=== PATIENT | female | born 1975 | race African-American/Black ===

== ENCOUNTER → 2016-08-24 | Outpatient (CLI) | payer OTHER ==
[~2016-08-24] MED LIST: IBUP-232 PO; LABE200T2 PO; OXYC1TAB63 PO
== END ==
LOC: HPND 08:32
PROVIDERS: ATTEND Obstetrics & Gynecology
DX: O35.1XX0 Maternal care for (suspected) chromosomal abnormality in fetus, not applicable or unspecified (principal); O09.523 Supervision of elderly multigravida, third trimester; O09.92 Supervision of high risk pregnancy, unspecified, second trimester; Z3A.33 33 weeks gestation of pregnancy
CPT/HCPCS: 76818; 76820

== ENCOUNTER 2016-08-31 10:22 | Emergency (ER) | payer OTHER ==
[2016-08-31] VITALS (9 sets, daily range): BP systolic 126–146; BP diastolic 90–98; PULSE 93–103; RESP 18–20
[~2016-08-31 10:22] MED LIST changes: -IBUP-232 PO; -OXYC1TAB63 PO
--- NOTE | 2016-08-31 11:45 | PD ---
HPI Chief Complaint History of chronic hypertension, nonreactive NST, patient presents for prolonged heart monitoring Date Seen: Aug 31, 2016 Time Seen: 11:00 Travel History International Travel<30 Days: No Contact w/Intl Traveler<30Days: No Known Affected Area: No History of Present Illness HPI 41-year-old at 34 weeks and 4 days of gestation, EDC 10/08/16, patient was brought to OB ED from [facility] for prolonged heart monitoring after undergoing biophysical profile measurements. The patient has a history of chronic hypertension and is currently undergoing testing twice weekly( BPP and KRISTINA check). Today BPP is 8 out of 10, KRISTINA is 7.7 cm, and NST is nonreactive. Patient currently denies headaches, blurry vision, visual disturbances and epigastric pain. care is with Dr. Howell. course is significant for advanced maternal age, abnormal cells free DNA for T 21 (patient declined amniocentesis), fetus with hypoplastic nasal bone, patient with sickle cell trait and chronic hypertension. Para: 0 : 1 Miscarriage: 0 : 0 History Past Medical History Narrative Medical Chronic hypertension( patient is on labetalol), sickle cell trait. Conjunctivitis. Obstetric History Obstetric History Primigravida Past Surgical History Narrative Surgical Denies Surgical History: No Previous Surgery Family History Narrative Family History Father has a history of heart disease(the father today 08/31/16), mother has a history of sickle cell trait Social History Alcohol Use: No Tobacco Use: No Substance Abuse: No Allergies-Medications (Allergen,Severity, Reaction): Coded Allergies: No Known Allergies (Verified , 06/27/16) Home Meds Reported Medications Labetalol 200 Mg [id number] Mg PO BID Ref 0 06/27/16 Review of Systems Except as stated in HPI: all other systems reviewed are Neg Cardiovascular: Other (increased blood pressure, sickle cell trait) Hematologic/Lymphatic: Other (sickle cell trait) Physical Exam Narrative GENERAL: Well-nourished, well-developed patient. SKIN: Warm and dry. HEAD: Normocephalic and atraumatic. EYES: No scleral icterus. No injection or drainage. ENT: No nasal drainage noted. Mucous membranes pink. Airway patent. NECK: Supple, trachea midline. No JVD. CARDIOVASCULAR: Regular rate and rhythm without murmurs, gallops, or rubs. RESPIRATORY: Breath sounds equal bilaterally. No accessory muscle use. BREASTS: Bilateral exam showed no masses , no retractions, no nipple discharge. ABDOMEN/GI: Abdomen soft, gravid, non-tender, bowel sounds present, no rebound, no guarding Gravid to 35 weeks size Fundal Height: 35 cm GENITOURINARY: External Genitalia: intact and normal in appearance BUS glands: Normal Cervix: Close, long, posterior Dilatation: Closed Effacement: 30% Station: -3 Presentation: Cephalic Membranes: Intact Uterine Contractions: None FHT's: Category: one Baseline: 150s Reactive: Reassuring Variability: Moderate Decels: None EXTREMITIES: No cyanosis or edema. BACK: Nontender without obvious deformity. No CVA tenderness. NEUROLOGICAL: Awake and alert. Motor and sensory grossly within normal limits. Five out of 5 muscle strength in all muscle groups. Normal speech. Data Data Vital Signs Reviewed: Yes Orders Vital Signs (Adult) .ON ADMISSION (08/31/16 11:27) ^ Labor Status (08/31/16 11:27) ^ Non Stress Test (08/31/16 11:27) ^ Hydration (08/31/16 11:27) Diet Regular Basic (08/31/16 Lunch) Urinalysis - C+S If Indicated (08/31/16 11:28) Protein Creat Ratio, Random Ur (08/31/16 11:28) Complete Blood Count With Diff (08/31/16 11:29) Comprehensive Metabolic Panel (08/31/16 11:29) Uric Acid (08/31/16 11:29) Ldh Serum (08/31/16 11:29) MDM Medical Record Reviewed: Yes Diagnosis Diagnosis: Primary Impression: 34 weeks gestation of Additional Impressions: Non-reactive NST (non-stress test) Chronic hypertension affecting Disposition: 01 DISCHARGE HOME Condition: Stable Patient Instructions: General Instructions, Preeclampsia (ED) Additional Instructions: Patient underwent BPP which is 8 out of 10 with nonreactive NST. Patient underwent prolonged monitoring, NST is now reassuring,. Patient with a history of chronic hypertension on labetalol, she is currently asymptomatic, she denies headaches, blurry vision, visual disturbances and epigastric pain. Patient is scheduled for testing twice weekly ,she has an appointment for BPP and KRISTINA on 09/03/16. Patient is instructed to return to labor and delivery if headaches, blurry vision, epigastric pain, decreased movement , cramping, contractions, leakage of fluids, or vaginal bleeding. Drink plenty of fluids. Monitor kick counts daily. Wash for signs and symptoms of preeclampsia. Keep appointments with OB diagnostics and OB Doctor as scheduled. Continue with labetalol as prescribed. Campos Cates MD Aug 31, 2016 11:45
[2016-08-31 12:50] LABS: AUTOMATED NEUTROPHIL # 5.6 TH/MM3 (1.8-7.7); BASOPHIL # 0.1 TH/MM3 (0-0.2); BASOPHIL % 0.9 % (0.0-2.0); EOSINOPHIL # 0.2 TH/MM3 (0-0.4); EOSINOPHIL % 2.5 % (0.0-4.0); HEMATOCRIT 34.2 % (35.0-46.0); HEMO FLAGS DIFF FINAL; LYMPH % 17.7 % (9.0-44.0); LYMPHOCYTE # 1.4 TH/MM3 (1.0-4.8); MEAN CELL VOLUME 75.4 FL (80.0-100.0); MEAN CORPUSCULAR HEMOGLOBIN 25.3 PG (27.0-34.0); MEAN CORPUSCULAR HGB CONC 33.5 % (32.0-36.0); MONO % 7.3 % (0.0-8.0); NEUT % 71.6 % (16.0-70.0); PLATELET COUNT 234 TH/MM3 (150-450); RED BLOOD COUNT 4.53 MIL/MM3 (4.00-5.30); RED CELL DISTRIBUTION WIDTH 16.1 % (11.6-17.2); WHITE BLOOD COUNT 7.8 TH/MM3 (4.0-11.0)
[2016-08-31 12:52] LABS: BACTERIA, URINE FEW /hpf; BLOOD, URINE NEG (NEG); GLUCOSE,URINE NEG (NEG); HYALINE CAST, URINE 1 /lpf (RARE); KETONE, URINE NEG (NEG); NITRITE,URINE NEG (NEG); SQUAMOUS EPITHELIAL CELL URINE 9 /hpf (0-5); URINE COLOR LIGHT-YELLOW (YELLW/STRAW)
[2016-08-31 12:53] LABS: COMMENT (UR) CULT NOT INDICATED; CULTURE IF INDICATED CULT NOT INDICATED
[2016-08-31 13:10] LABS: ALT (GPT) 13 U/L (10-53); ANION GAP 9 MEQ/L (5-15); AST (GOT) 7 U/L (15-37); BICARBONATE 23.9 MEQ/L (21.0-32.0); BLOOD UREA NITROGEN 4 MG/DL (7-18); CHLORIDE 106 MEQ/L (98-107); GLOMERULAR FILTRATION RATE 123 ML/MIN (>89); POTASSIUM 3.7 MEQ/L (3.5-5.1); SODIUM (NA) 139 MEQ/L (136-145); URIC ACID 3.6 MG/DL (2.6-6.0)
[2016-08-31 13:12] LABS: ALKALINE PHOSPHATASE 96 U/L (45-117); LDH SERUM 144 U/L (84-246); TOTAL BILIRUBIN ADULT 0.2 MG/DL (0.2-1.0)
== END 2016-08-31 15:06 | disposition home or self-care (01) ==
LOC: HOBED 10:22
DX: O10.93 Unspecified pre-existing hypertension complicating the puerperium (principal); D57.3 Sickle-cell trait; Z3A.34 34 weeks gestation of pregnancy
CPT/HCPCS: 36415; 59025; 80053; 81001; 82570; 83615; 84156; 84550; 85025

== ENCOUNTER 2016-09-07 10:15 | Observation (INO) | payer OTHER ==
--- NOTE | 2016-09-07 11:13 | PD ---
HPI Chief Complaint prolonged monitoring after [facility] visit. "Heart rate may look funny" Date Seen: Sep 07, 2016 Time Seen: 10:30 Travel History International Travel<30 Days: No Contact w/Intl Traveler<30Days: No Known Affected Area: No History of Present Illness HPI 41 yo with known hypertension in on labetolol, presented to [facility] visit today for LEBRON. S/D 4.7, KRISTINA 6.5, with possibility of Trisomy 21 diagnosis. No amnio performed but ultrasound characteristics and MaterniT 21 concerning. Denies PIH symptoms. Para: 0 : 1 Last Menstrual Period: Sep 07, 2016 (uncertain) History Past Medical History Narrative Medical Hypertension AMA Sickle cell trait Past Surgical History Surgical History: No Previous Surgery Family History Family History: Negative Social History Alcohol Use: No Tobacco Use: No Substance Abuse: No Allergies-Medications (Allergen,Severity, Reaction): Coded Allergies: No Known Allergies (Verified , 06/27/16) Home Meds Reported Medications Labetalol 200 Mg [id number] Mg PO BID Ref 0 06/27/16 Physical Exam Narrative GENERAL: Well-nourished, well-developed patient. SKIN: Warm and dry. HEAD: Normocephalic and atraumatic. EYES: No scleral icterus. No injection or drainage. ENT: No nasal drainage noted. Mucous membranes pink. Airway patent. NECK: Supple, trachea midline. No JVD. CARDIOVASCULAR: Regular rate and rhythm without murmurs, gallops, or rubs. RESPIRATORY: Breath sounds equal bilaterally. No accessory muscle use. BREASTS: Bilateral exam showed no masses , no retractions, no nipple discharge. ABDOMEN/GI: Abdomen soft, non-tender, bowel sounds present, no rebound, no guarding Gravid to 30 weeks size Fundal Height: [-] GENITOURINARY: External Genitalia: intact and normal in appearance BUS glands:Normal Cervix: closed Dilatation: Effacement: 0 Station: -3 Presentation: vertex Membranes: [intact or ruptured] Uterine Contractions: [-] FHT's: Category: 1 with moderately reactive tracing, baselin 130, no decelerations. No accelerations. Baseline: [-] Reactive: [-] Variability: [-] Decels: [-] EXTREMITIES: No cyanosis or edema. BACK: Nontender without obvious deformity. No CVA tenderness. NEUROLOGICAL: Awake and alert. Motor and sensory grossly within normal limits. Five out of 5 muscle strength in all muscle groups. Normal speech. Data Data Orders Vital Signs (Adult) .ON ADMISSION (09/07/16 10:57) ^ Labor Status (09/07/16 10:57) Cbc No Diff, Includes Plts (09/07/16 10:57) Uric Acid (09/07/16 10:57) Basic Metabolic Panel (Bmp) (09/07/16 10:57) Ast (Sgot) (09/07/16 10:57) MDM Medical Record Reviewed: Yes Narrative Course / MDM Chronic hypertension, possible Trisomy 21 with occasional Category 2 tracing 23 hr obs Plan 23 hr obs GBS performed 24 hr urine protein Diagnosis Diagnosis: Primary Impression: Chronic hypertension affecting Additional Impressions: Chromosomal abnormality in fetus affecting care of mother Abnormal heart rate or rhythm affecting management of mother Advanced maternal age, 1st Saumya Valdes MD Sep 07, 2016 11:13
[2016-09-07 11:43] LABS: HEMATOCRIT 37.9 % (35.0-46.0); MEAN CELL VOLUME 75.4 FL (80.0-100.0); MEAN CORPUSCULAR HEMOGLOBIN 24.8 PG (27.0-34.0); MEAN CORPUSCULAR HGB CONC 32.8 % (32.0-36.0); PLATELET COUNT 258 TH/MM3 (150-450); RED BLOOD COUNT 5.02 MIL/MM3 (4.00-5.30); RED CELL DISTRIBUTION WIDTH 15.9 % (11.6-17.2); WHITE BLOOD COUNT 7.9 TH/MM3 (4.0-11.0)
[2016-09-07 11:44] LABS: REVIEW FLAG FINAL
[2016-09-07 11:59] LABS: BICARBONATE 25.3 MEQ/L (21.0-32.0); POTASSIUM 3.9 MEQ/L (3.5-5.1)
[2016-09-07 12:22] LABS: BACTERIA, URINE RARE /hpf; BLOOD, URINE NEG (NEG); COMMENT (UR) CULT NOT INDICATED; CULTURE IF INDICATED CULT NOT INDICATED; GLUCOSE,URINE NEG (NEG); KETONE, URINE NEG (NEG); NITRITE,URINE NEG (NEG); PH, URINE 6.5 (5.0-8.5); SQUAMOUS EPITHELIAL CELL URINE 2 /hpf (0-5); URINE COLOR LIGHT-YELLOW (YELLW/STRAW)
[2016-09-07] MEDS ORDERED: SODIUM CHLORIDE 0.9% FLUSH 5 ML FLUSH IVF PRN (12:30)
[2016-09-07 13:22] VITALS: RESP 16; TEMP 98.2
[2016-09-07 13:23] VITALS: BP 159/94; PULSE 78
[2016-09-07] MEDS ORDERED: BETAMETHASONE SOD PHOS/ACETATE SUSP 30 MG/5 ML VIAL IM SCH (14:45)
[2016-09-07] MEDS ORDERED: ZOLPIDEM TARTRATE 5 MG TAB PO PRN (14:45)
[2016-09-07] MEDS: SODIUM CHLORIDE 0.9% FLUSH 5 ML FLUSH IVF SCH (21:00)
[2016-09-07] MEDS: LABETALOL HCL 200 MG TAB PO SCH (21:00)
--- NOTE | 2016-09-07 21:58 | MH ---
cc: FADIA ROSA DATE OF ADMISSION: 09/07/2016 REASON FOR ADMISSION: Prolonged monitoring of fetus. HISTORY OF PRESENT ILLNESS: The patient is a 41 year-old black female, para 0-0-0-0, with known hypertension in and sickle-cell trait. She has been followed in my office without any significant complications. 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 No amniocentesis was performed. Ultrasound characteristics and maternal T-21 was positive. She denies any signs or symptoms of scotomata, headache or swelling. She was seen by maternal medicine today and during her testing which she is getting twice weekly revealed a variable deceleration. Because of this and her advanced maternal age, sickle-cell trait, and hypertension, she desired further monitoring. We are putting her in the hospital now to monitor her blood pressure, monitor her preeclamptic labs and most importantly to watch the fetus very carefully and see if there is any distress noted. She is aware of the plan and has agreed to proceed. PAST OB HISTORY: Para 0-0-0-0. 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 PAST MEDICAL HISTORY: Remarkable for chronic hypertension, advanced maternal age and sickle-cell trait. PAST SURGICAL HISTORY: Remarkable for foot surgery for stepping on a chicken bone. FAMILY HISTORY: Remarkable for heart disease in the father. High blood pressure in the father. Diabetes mellitus in the father. SOCIAL HISTORY: She is a nondrinker, nonsmoker. . 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 ALLERGIES: NO KNOWN DRUG ALLERGIES. CURRENT MEDICATIONS: 1. Labetalol 200 milligrams one p.o. b.i.d. 2. vitamins one p.o. q day. PHYSICAL EXAMINATION: GENERAL: A well-nourished female resting comfortably in the bed. HEENT: Normocephalic, atraumatic. NECK: Supple. Trachea midline. No thyromegaly or adenopathy. CHEST: Clear to auscultation. HEART: Regular rate and rhythm without murmur or gallop. ABDOMEN: Soft, nontender. There is no hepatosplenomegaly. She is gravid. The baby seems slightly small for gestational age. PELVIC: Deferred EXTREMITIES: No clubbing, cyanosis or edema. NEUROLOGIC: Intact, awake, alert. ASSESSMENT AND PLAN: 1. Intrauterine at 34 plus weeks. 2. Chronic hypertension, currently on labetalol and getting anti- testing twice weekly. 3. Possibly Trisomy 21. 4. Variable decelerations. I have reviewed the entire strip. It looks good. She does have some occasional variables but it is still category 1 tracing. We plan to go ahead and get her GBS, check her labs and carefully watch the fetus, and we will decide within a day whether she needs to stay and be delivered. R. MD SRUTHI Dick/BETO /9:35 PM /9:45 PM
[2016-09-08] MEDS: LABETALOL HCL 200 MG TAB PO SCH (08:44)
[2016-09-08] MEDS: SODIUM CHLORIDE 0.9% FLUSH 5 ML FLUSH IVF SCH (08:44)
[2016-09-08] MEDS ORDERED: MULTIVIT/MIN/PREN/FOL AC/IRON PRENATAL TAB PO SCH (09:00)
[2016-09-08] MEDS ORDERED: BETAMETHASONE SOD PHOS/ACETATE SUSP 30 MG/5 ML VIAL IM SCH (12:00)
--- NOTE | 2016-09-08 13:36 | PD.OB.ANTE ---
Subjective Diagnosis: (1) Chronic hypertension affecting (2) Chromosomal abnormality in fetus affecting care of mother (3) Advanced maternal age, 1st Objective Lab & Micro Results Date/Time Procedure Status Source Growth 09/07/16 12:00 Group A Streptococcus Screen (ANGIE) - Final Complete Throat 09/07/16 12:00 Group A Streptococcus Screen Received Throat Pending Physical Exam GENERAL: Well-nourished, well-developed patient. CARDIOVASCULAR: Regular rate and rhythm without murmurs, gallops, or rubs. RESPIRATORY: Breath sounds equal bilaterally. No accessory muscle use. ABDOMEN/GI: Abdomen soft, non-tender. Fundus: [-] GENITOURINARY: External Genitalia: intact and normal in appearance Cervix: [-] Dilatation: [-] Effacement: [-] Station: [-] Presentation: [-] Membranes: [-] Uterine Contractions: [-] FHT's: Category: 1 Baseline: [-] Reactive: [-] Variability: [-] Decels: EXTREMITIES: No cyanosis or edema, non-tender, without signs of DVT. Lisa Lawrence Sep 08, 2016 13:36
== END 2016-09-08 14:31 | disposition home or self-care (01) ==
LOC: HOBED 10:15 → H2EA 12:38
PROVIDERS: ADMIT Obstetrics & Gynecology; ATTEND Obstetrics & Gynecology
DX: O13.3 Gestational [pregnancy-induced] hypertension without significant proteinuria, third trimester (principal); O35.1XX0 Maternal care for (suspected) chromosomal abnormality in fetus, not applicable or unspecified; D57.3 Sickle-cell trait; O09.513 Supervision of elderly primigravida, third trimester; Z3A.34 34 weeks gestation of pregnancy
CPT/HCPCS: 80048; 81001; 84450; 84550; 85027; 87081; 87086; 87880; 99284; G0378; J0702

== ENCOUNTER 2016-09-10 10:11 | Inpatient (IN) | payer OTHER ==
[2016-09-10] VITALS (12 sets, daily range): BP systolic 151–169; BP diastolic 75–99; PULSE 72–86; RESP 18–20; TEMP 97–98.4; O2SAT 98–100
[2016-09-10] MEDS ORDERED: CITRIC ACID-SODIUM CITRATE LIQ 30 ML UDC ONE (13:40)
[2016-09-10] MEDS ORDERED: ceFAZolin INJ 1,000 MG VIAL ONE (13:45)
[2016-09-10] MEDS ORDERED: OXYTOCIN 10 UNIT/ML AMP ONE (14:12)
[2016-09-10 14:16] LABS: AUTOMATED NEUTROPHIL # 6.3 TH/MM3 (1.8-7.7); BASOPHIL % 0.4 % (0.0-2.0); EOSINOPHIL # 0.1 TH/MM3 (0-0.4); EOSINOPHIL % 0.9 % (0.0-4.0); HEMATOCRIT 33.8 % (35.0-46.0); HEMO FLAGS DIFF FINAL; LYMPH % 17.2 % (9.0-44.0); LYMPHOCYTE # 1.6 TH/MM3 (1.0-4.8); MEAN CELL VOLUME 75.4 FL (80.0-100.0); MEAN CORPUSCULAR HEMOGLOBIN 25.1 PG (27.0-34.0); MEAN CORPUSCULAR HGB CONC 33.3 % (32.0-36.0); MONO % 12.9 % (0.0-8.0); NEUT % 68.6 % (16.0-70.0); PLATELET COUNT 243 TH/MM3 (150-450); RED BLOOD COUNT 4.48 MIL/MM3 (4.00-5.30); RED CELL DISTRIBUTION WIDTH 15.9 % (11.6-17.2); WHITE BLOOD COUNT 9.1 TH/MM3 (4.0-11.0)
[2016-09-10] MEDS ORDERED: EPIDURAL-DIPHENHYDRAMINE HCL 50 MG/ML VIAL IV PUSH PRN (14:16)
[2016-09-10] MEDS ORDERED: EPIDURAL-DIPHENHYDRAMINE HCL 50 MG CAP PO PRN (14:16)
[2016-09-10] MEDS ORDERED: EPIDURAL-DO NOT ADMINISTER ANTICOAGULANTS XX PRN (14:16)
[2016-09-10] MEDS ORDERED: EPIDURAL-NALOXONE HCL 0.4 MG/ML AMP IV PRN (14:16)
[2016-09-10] MEDS ORDERED: EPIDURAL-NO SYSTEMIC NARCOTICS XX PRN (14:16)
[2016-09-10] MEDS ORDERED: SODIUM CHLORIDE 0.9% FLUSH 5 ML FLUSH IV PRN (16:00)
[2016-09-10] MEDS ORDERED: OXYTOCIN 30 UNITS-500ML PREMIX 500 ML IV ONE ×2 (16:00)
[2016-09-10] MEDS ORDERED: ACETAMINOPHEN 1000 MG/100 ML VIAL IV ONE ×2 (16:00→16:13)
[2016-09-10] MEDS ORDERED: ZOLPIDEM TARTRATE 5 MG TAB PO PRN (16:00)
[2016-09-10] MEDS ORDERED: oxyCODONE/ACETAMINOPHEN 5 MG/325 MG TAB PO PRN ×2 (16:00)
[2016-09-10] MEDS ORDERED: SIMETHICONE 80 MG CHEWABLE TAB PO PRN (16:00)
[2016-09-10] MEDS ORDERED: ONDANSETRON HCL 4 MG/2 ML VIAL IV PUSH PRN (16:00)
[2016-09-10] MEDS ORDERED: DOCUSATE SODIUM 50 MG/SENNA 8.6 MG TAB PO PRN (16:00)
[2016-09-10] MEDS ORDERED: MORPHINE SULFATE PF 5 MG/10 ML VIAL ONE (16:11)
[2016-09-10 18:02] LABS: BASOPHIL % 0.2 % (0.0-2.0); EOSINOPHIL # 0.1 TH/MM3 (0-0.4); EOSINOPHIL % 0.6 % (0.0-4.0); HEMATOCRIT 23.7 % (35.0-46.0); HEMO FLAGS DIFF FINAL; LYMPH % 15.2 % (9.0-44.0); LYMPHOCYTE # 1.8 TH/MM3 (1.0-4.8); MEAN CORPUSCULAR HEMOGLOBIN 25.3 PG (27.0-34.0); MEAN CORPUSCULAR HGB CONC 33.3 % (32.0-36.0); PLATELET COUNT 195 TH/MM3 (150-450); RED BLOOD COUNT 3.11 MIL/MM3 (4.00-5.30); RED CELL DISTRIBUTION WIDTH 15.8 % (11.6-17.2)
[2016-09-10] MEDS ORDERED: LACTATED RINGER'S 1000 ML INJ 1,000 ML IV SCH (20:53)
[2016-09-10] MEDS ORDERED: SODIUM CHLORIDE 0.9% FLUSH 5 ML FLUSH IV SCH (21:00)
[2016-09-10] MEDS: LABETALOL HCL 200 MG TAB PO SCH (21:25)
[2016-09-11] VITALS: BP 155/84; PULSE 88; RESP 20; TEMP 97.9
[2016-09-11] MEDS ORDERED: OXYTOCIN 30 UNITS-500ML PREMIX 500 ML IV PRN (02:00)
[2016-09-11 04:00] VITALS: BP 123/81; PULSE 96; RESP 20; TEMP 98.7
[2016-09-11 05:46] VITALS: RESP 18
[2016-09-11 08:00] VITALS: BP 136/79; PULSE 97; RESP 17; TEMP 97.8
[2016-09-11 08:08] LABS: AUTOMATED NEUTROPHIL # 10.8 TH/MM3 (1.8-7.7); BASOPHIL % 0.2 % (0.0-2.0); EOSINOPHIL # 0.2 TH/MM3 (0-0.4); EOSINOPHIL % 1.1 % (0.0-4.0); HEMATOCRIT 24.9 % (35.0-46.0); HEMO FLAGS DIFF FINAL; LYMPH % 9.2 % (9.0-44.0); LYMPHOCYTE # 1.2 TH/MM3 (1.0-4.8); MEAN CELL VOLUME 74.7 FL (80.0-100.0); MEAN CORPUSCULAR HEMOGLOBIN 25.4 PG (27.0-34.0); MONO % 9.7 % (0.0-8.0); NEUT % 79.8 % (16.0-70.0); PLATELET COUNT 234 TH/MM3 (150-450); RED BLOOD COUNT 3.34 MIL/MM3 (4.00-5.30); RED CELL DISTRIBUTION WIDTH 15.6 % (11.6-17.2); WHITE BLOOD COUNT 13.5 TH/MM3 (4.0-11.0)
[2016-09-11] MEDS: LABETALOL HCL 200 MG TAB PO SCH ×2 (09:17→20:58)
--- NOTE | 2016-09-11 10:04 | HHI.OB ---
Subjective Post Operative Day: 1 Remarks no complaints, on labetolol, bottlefeeding Objective Vitals/I&O Vital Signs Date Time Temp Pulse Resp B/P Pulse Ox O2 Delivery O2 Flow Rate FiO2 09/11/16 08:00 97 136/79 09/11/16 08:00 97.8 17 09/11/16 05:46 18 09/11/16 04:00 96 123/81 09/11/16 04:00 98.7 20 09/11/16 00:00 88 20 155/84 09/11/16 00:00 97.9 09/10/16 23:00 20 09/10/16 22:00 20 09/10/16 21:00 20 09/10/16 20:00 98.4 09/10/16 20:00 80 20 158/75 100 09/10/16 17:40 97.0 86 20 151/95 99 09/10/16 17:05 97.8 78 18 155/93 99 09/10/16 16:57 82 18 98 09/10/16 16:57 162/97 09/10/16 16:48 81 18 161/99 99 09/10/16 16:32 98 09/10/16 16:31 151/99 09/10/16 16:31 72 18 09/10/16 16:15 169/99 09/10/16 16:12 97.8 09/10/16 16:12 81 18 98 Result Diagram: 09/11/16 0730 Objective Remarks GENERAL: Well-nourished, well-developed patient. CARDIOVASCULAR: Regular rate and rhythm without murmurs, gallops, or rubs. RESPIRATORY: Breath sounds equal bilaterally. No accessory muscle use. ABDOMEN/GI: Abdomen soft, non-tender, bowel sounds present. Incision:dressing Clean, dry and intact. Fundus: Firm, non-tender at umbilicus. GENITOURINARY: Light to moderate bleeding. EXTREMITIES: No cyanosis or edema, non-tender, without signs of DVT. Medications and IVs Current Medications Medications (Trade) Dose Ordered Sig/Carmen Route Start Time Stop Time Status Last Admin (Lr 1000 ml Inj) 1,000 ml @ 100 mls/hr Q10H IV 09/10/16 20:53 09/11/16 16:52 09/10/16 20:53 (NS Flush) 2 ml BID IV 09/10/16 21:00 (NS Flush) 2 ml UNSCH PRN IV 09/10/16 16:00 (Mylicon Chew) 80 mg QID PRN PO 09/10/16 16:00 (Motrin) 600 mg Q6H PRN PO 09/10/16 16:00 (Percocet 5-325 Mg) 1 tab Q4H PRN PO 09/10/16 16:00 (Percocet 5-325 Mg) 2 tab Q4H PRN PO 09/10/16 16:00 (Viktoria-Colace) 2 tab Q12H PRN PO 09/10/16 16:00 (Ambien) 5 mg HS PRN PO 09/10/16 16:00 (M-M-R Ii Inj) 0.5 ml ONCE ONCE SQ 09/11/16 16:15 09/11/16 16:16 (Boostrix Inj) 0.5 ml ONCE ONCE IM 09/11/16 16:15 09/11/16 16:16 (Zofran Inj) 4 mg Q6H PRN IV PUSH 09/10/16 16:00 (Trandate) 200 mg BID PO 09/10/16 21:00 09/11/16 09:17 Miscellaneous Information NO SYSTEMIC NARCOTICS TO BE GIVEN FO... UNSCH PRN XX 09/10/16 14:16 09/11/16 14:15 (Narcan Inj) 0.4 mg UNSCH PRN IV 09/10/16 14:16 09/11/16 14:15 (Benadryl Inj) 25 mg Q6H PRN IV PUSH 09/10/16 14:16 09/11/16 14:15 (Benadryl) 50 mg Q6H PRN PO 09/10/16 14:16 09/11/16 14:15 Miscellaneous Information ALL NURSING DEPARTMENTS UNSCH PRN XX 09/10/16 14:16 09/11/16 14:15 Assessment/Plan Problem List: (1) Chronic hypertension affecting (2) delivery delivered Assessment and Plan POD#1 OOB today, reg diet, analgesia prn Discharge Planning routine Attending Attestation pt seen by Africa Luu MD Sep 11, 2016 10:04
[2016-09-11] MEDS: IBUPROFEN 600 MG TAB PO PRN ×2 (10:41→22:10)
[2016-09-11 14:53] VITALS: BP 115/78; PULSE 101; RESP 19; TEMP 98.3
[2016-09-11] MEDS ORDERED: DIPHTH/TETANUS/ACEL PERTUSSIS (BOOSTER) 0.5 ML VIAL/PFS IM ONE (16:15)
[2016-09-11] MEDS ORDERED: MEASLES, MUMPS, RUBELLA VACCINE 0.5 ML VIAL SQ ONE (16:15)
[2016-09-11 20:00] VITALS: BP 148/87; PULSE 100; RESP 18; TEMP 99
[2016-09-12] VITALS (7 sets, daily range): BP systolic 99–176; BP diastolic 55–102; PULSE 94–114; RESP 18–20; TEMP 98.3–99; O2SAT 98
[2016-09-12] MEDS: LABETALOL HCL 200 MG TAB PO SCH ×2 (08:26→21:22)
[2016-09-12] MEDS: IBUPROFEN 600 MG TAB PO PRN ×2 (08:26→21:22)
[2016-09-12 10:29] LABS: MEAN CELL VOLUME 73.8 FL (80.0-100.0); MEAN CORPUSCULAR HEMOGLOBIN 25.9 PG (27.0-34.0); MEAN CORPUSCULAR HGB CONC 35.1 % (32.0-36.0); PLATELET COUNT 251 TH/MM3 (150-450); RED BLOOD COUNT 2.98 MIL/MM3 (4.00-5.30); RED CELL DISTRIBUTION WIDTH 15.5 % (11.6-17.2); REVIEW FLAG FINAL; WHITE BLOOD COUNT 10.9 TH/MM3 (4.0-11.0)
[2016-09-12 10:42] LABS: ALT (GPT) 14 U/L (10-53); ANION GAP 7 MEQ/L (5-15); AST (GOT) 13 U/L (15-37); BICARBONATE 28.8 MEQ/L (21.0-32.0); BLOOD UREA NITROGEN 7 MG/DL (7-18); CHLORIDE 106 MEQ/L (98-107); GLOMERULAR FILTRATION RATE 109 ML/MIN (>89); POTASSIUM 3.8 MEQ/L (3.5-5.1); SODIUM (NA) 142 MEQ/L (136-145)
[2016-09-12 10:44] LABS: ALKALINE PHOSPHATASE 71 U/L (45-117); TOTAL BILIRUBIN ADULT 0.3 MG/DL (0.2-1.0)
--- NOTE | 2016-09-12 11:02 | HHI.OB ---
Subjective Post Operative Day: 2 Remarks doing well on labetolol 200 mg BID, BPs labile, labs today normal, no HORNE, no BV , no CP Objective Vitals/I&O Vital Signs Date Time Temp Pulse Resp B/P Pulse Ox O2 Delivery O2 Flow Rate FiO2 09/12/16 08:00 98.6 09/12/16 08:00 94 18 143/99 09/12/16 00:40 99.0 18 09/12/16 00:39 99/55 09/12/16 00:39 100 09/11/16 20:00 99.0 100 18 148/87 09/11/16 14:53 115/78 09/11/16 14:53 98.3 101 19 Result Diagram: 09/12/16 1018 09/12/16 1018 Objective Remarks GENERAL: Well-nourished, well-developed patient. CARDIOVASCULAR: Regular rate and rhythm without murmurs, gallops, or rubs. RESPIRATORY: Breath sounds equal bilaterally. No accessory muscle use. ABDOMEN/GI: Abdomen soft, non-tender, bowel sounds present. Incision: Clean, dry and intact. Fundus: Firm, non-tender at umbilicus. GENITOURINARY: Light to moderate bleeding. EXTREMITIES: No cyanosis or edema, non-tender, without signs of DVT. Medications and IVs Current Medications Medications (Trade) Dose Ordered Sig/Carmen Route Start Time Stop Time Status Last Admin (NS Flush) 2 ml BID IV 09/10/16 21:00 (NS Flush) 2 ml UNSCH PRN IV 09/10/16 16:00 (Mylicon Chew) 80 mg QID PRN PO 09/10/16 16:00 (Motrin) 600 mg Q6H PRN PO 09/10/16 16:00 09/12/16 08:26 (Percocet 5-325 Mg) 1 tab Q4H PRN PO 09/10/16 16:00 (Percocet 5-325 Mg) 2 tab Q4H PRN PO 09/10/16 16:00 (Viktoria-Colace) 2 tab Q12H PRN PO 09/10/16 16:00 (Ambien) 5 mg HS PRN PO 09/10/16 16:00 (Zofran Inj) 4 mg Q6H PRN IV PUSH 2/3/17 16:00 (Trandate) 200 mg BID PO 09/10/16 21:00 09/12/16 08:26 Assessment/Plan Problem List: (1) Chronic hypertension affecting (2) delivery delivered Assessment and Plan POD#2 OOB today, reg diet, analgesia prn Discharge Planning routine Attending Attestation pt seen by Africa Luu MD Sep 12, 2016 11:02
[2016-09-13 05:30] VITALS: BP 130/74; PULSE 86; RESP 18
[2016-09-13] MEDS: IBUPROFEN 600 MG TAB PO PRN (05:38)
[2016-09-13 07:43] VITALS: BP 151/94; PULSE 87; RESP 16; TEMP 97.9
[2016-09-13] MEDS ORDERED: OXYC1TAB63 PO (08:44)
[2016-09-13] MEDS ORDERED: IBUP-232 PO (08:44)
[2016-09-13] MEDS: LABETALOL HCL 200 MG TAB PO SCH (09:05)
--- NOTE | 2016-09-13 09:30 | MP ---
cc: Joann HOWELL MD DATE OF SURGERY: September PREOPERATIVE DIAGNOSIS 1. Intrauterine at 36 weeks. 2. Oligohydramnios. 3. Non-reassuring biophysical profile. 4. Non-reassuring strip. 5. Intrauterine growth restriction. POSTOPERATIVE DIAGNOSIS 1. Intrauterine at 36 weeks. 2. Oligohydramnios. 3. Non-reassuring biophysical profile. 4. Non-reassuring strip. 5. Intrauterine growth restriction. 6. Multiple fibroids plus pelvic adhesions, plus easy bleeding. PROCEDURE Primary low transverse section and bilateral tubal ligation. ANESTHESIA Spinal. SURGEON Joann Howell MD CO-SURGEON Rebecca Corrigan MD, R2 FINDINGS A premature female weighing 4 pounds 2 ounces. The Apgars were 7 and 7. The uterus had multiple myomas, one of the largest exophytic at this fundus was 2 cm x 2 cm. There were multiple smaller ones. The tubes were encased in flimsy adhesions most likely from old PID. The ovaries were normal in shape and size. COMPLICATIONS Large blood loss. COUNTS The counts were correct. ESTIMATED BLOOD LOSS 1000 ccs. FLUIDS Crystalloids. CONDITION The patient tolerated the procedure well and went to the recovery room in good condition. The patient was evaluated in the center this morning and found to have a poor biophysical profile. The baby also was noted to have low fluid and this necessitated delivery. Her cervix was noted to be long, thick, closed and very posterior, it was very difficult to reach. PROCEDURE After discussing the risks and benefits of an induction versus a primary with tubal ligation, she agreed to proceed with a . I do not feel this baby could tolerate a good labor, so she was prepared for surgery, consents were signed. She was taken to the operating room where she was identified by name band and verbally. She was given a spinal anesthetic, prepped and draped in the usual sterile manner and a time-out was taken. Pfannenstiel incision was made, carried through to the fascia. The fascia was nicked bilaterally and taken off the rectus muscles by blunt and sharp dissection. The rectus muscles were spread bluntly and the peritoneum was entered under direct vision without difficulty. The incision was extended with care to avoid the urinary bladder. Bladder flap was created after the bladder blade had been placed and it was noted that she had quite a bit of bleeding just from the bladder flap. The lower uterine segment was not well-developed, we incised the uterus in a transverse manner along the lower uterine segment. There was a large amount of bleeding at this time. This was where most of the blood loss occurred. She had a large venous sinuses in the anterior uterine wall. We got through as fast as we could, grabbed the baby's head, gave fundal pressure and the baby was delivered without difficulty. The cord was noted to be very small, the baby was quite small as well. Cord was doubly clamped and cut and handed to the resuscitation team that was present. The placenta was delivered immediately and the uterus curettaged twice with a wet lap. The uterine incision was repaired with two layers of suture using 0 Vicryl, the second layer imbricating the first. There was still quite a bit and oozing from the incision. Therefore, we used 2-0 Chromic on a GI needle and a baseball stitch to make the incision hemostatic. At this point pressure was placed on the incision and the attention was turned to the fallopian tubes. There was some flimsy adhesions around the fallopian tubes which were taken down with the Bovie and blunt dissection. In the midportion of the fallopian tube was grasped with a [place] and tied off with #2 plain gut and a small piece of fallopian tube was removed and handed for pathologic evaluation. The contralateral tube as well had flimsy adhesions. These were taken down and a small portion of the fallopian tube was knuckled over, tied off with two plain gut and a small piece sent for pathologic evaluation. At this point the posterior cul-de-sac was cleaned of blood and debris and irrigated with a small amount of fluid. The uterus was delivered back into the abdomen and the gutters were cleaned of blood and debris. We put some pressure on the uterine incision. There was still some oozing. A single [id number] with a 3-0 Chromic on a GI needle was accomplished, there was still a little bit of oozing so we used Avitene to control the bleeding. At this point the rectus muscles were reapproximated with 0 Vicryl in a running fashion. The fascia was repaired with 0 Vicryl in a running fashion. Subcu was repaired with 3-0 Vicryl in a running fashion. Skin was repaired with 4-0 Monocryl in subcuticular manner. She tolerated the procedure well. She did have a little hypotension during the case, probably due to large blood loss which anesthesia controlled. She went to the recovery room in satisfactory condition. R. MD SRUTHI Dick/KEISHA /4:04 PM /9:06 AM
--- NOTE | 2016-09-13 10:35 | HHI.DCPOC ---
Discharge Care Plan Diagnosis: (1) Chronic hypertension affecting (2) delivery delivered (3) Anemia Your Health Problems Are: delivery Report Symptoms to Your Doctor -Temperate above 100.5 degrees -Redness, of incision or excessive or foul smelling drainage -Unusual pain or calf pain -Increased vaginal bleeding -Painful or difficulty urinating -Feelings of extreme sadness or anxiety after 2 weeks Goals to Promote Your Health * To prevent worsening of your condition and complications * To maintain your health at the optimal level Directions to Meet Your Goals Take your medications as prescribed Follow your dietary instruction Follow activity as directed Ensure plenty of rest for recovery Drink fluids for hydration Keep your appointments as scheduled Take your immunizations and boosters as scheduled If your symptoms worsen call your PCP, if no PCP go to Urgent Care Center or Emergency Room Smoking is Dangerous to Your Health. Avoid second hand smoke Call the 24-hour crisis hotline for domestic abuse at Lisa Lawrence Sep 13, 2016 10:18
--- NOTE | 2016-09-13 10:37 | HHI.DS ---
Admission Date Sep 10, 2016 at 10:30 Discharge Date: Sep 13, 2016 Admitting Diagnosis 36 week bpp 4/10 with nonreassuring tracing chronic hypertension oligohydramnios Diagnosis: (1) Chronic hypertension affecting (2) delivery delivered Diagnosis: Principal (3) Anemia Diagnosis: Secondary Delivery Date: Sep 10, 2016 : Primary Reason: 36 week nonreassuring tracing. BPP 4/10 oligohydramnios : Female Brief History 36 week , trisomy BPP 4/10 with nonreassuring heart tracing oligohydramnios chronic hypertension pt had unfavorable cervix, dr fuchs discussed option of primary c section or trying induction. Decision was made to do c section Hospital Course monitor bp monitor anemia routine post op care Pt Condition on Discharge: Good Discharge Disposition: Discharge Home Discharge Instructions Diet Instructions: As Tolerated, No Restrictions Additional Diet Instructions: Drink at least 8 - 16 oz bottles of water a day Activities You Can Perform: Shower Only-No Bath Activities to Avoid: Prolonged Standing, Strenuous Activity, Sexual Activity Additional Activity Instruc.: No driving until off pain medications Do not lift anything heavier than your baby in an carrier Follow up Referrals: FOOD PACKER - 1 Week @ [facility] New Medications: Ibuprofen (Ibuprofen) 600 Mg Tab 600 MG PO Q6H PRN pain #30 TAB Oxycodone-Acetaminophen (Oxycodone-Acetaminophen) 5-325 mg Tab 1 TAB PO Q4H PRN moderate pain #20 TAB Continued Medications: Labetalol (Labetalol) 200 Mg Tab 200 MG PO BID Blood Pressure Management Ref 0 TAB Lisa Lawrence Sep 13, 2016 10:29
--- NOTE | 2016-09-13 10:39 | HHI.OB ---
Subjective Post Operative Day: 3 Objective Vitals/I&O Vital Signs Date Time Temp Pulse Resp B/P Pulse Ox O2 Delivery O2 Flow Rate FiO2 09/13/16 07:43 87 151/94 09/13/16 07:43 97.9 16 09/13/16 05:30 86 18 130/74 09/12/16 23:00 94 18 108/60 09/12/16 21:15 98.3 114 20 176/102 09/12/16 14:21 98.5 104 18 138/88 98 Result Diagram: 09/12/16 1018 09/12/16 1018 Objective Remarks GENERAL: Well-nourished, well-developed patient. CARDIOVASCULAR: Regular rate and rhythm without murmurs, gallops, or rubs. RESPIRATORY: Breath sounds equal bilaterally. No accessory muscle use. ABDOMEN/GI: Abdomen soft, non-tender, bowel sounds present. Incision: Clean, dry and intact. Fundus: Firm, non-tender at umbilicus. GENITOURINARY: Light to moderate bleeding. EXTREMITIES: No cyanosis or edema, non-tender, without signs of DVT. Medications and IVs Current Medications Medications (Trade) Dose Ordered Sig/Carmen Route Start Time Stop Time Status Last Admin (NS Flush) 2 ml BID IV 09/10/16 21:00 (NS Flush) 2 ml UNSCH PRN IV 09/10/16 16:00 (Mylicon Chew) 80 mg QID PRN PO 09/10/16 16:00 (Motrin) 600 mg Q6H PRN PO 09/10/16 16:00 09/13/16 05:38 (Percocet 5-325 Mg) 1 tab Q4H PRN PO 09/10/16 16:00 (Percocet 5-325 Mg) 2 tab Q4H PRN PO 09/10/16 16:00 (Viktoria-Colace) 2 tab Q12H PRN PO 09/10/16 16:00 (Ambien) 5 mg HS PRN PO 09/10/16 16:00 (Zofran Inj) 4 mg Q6H PRN IV PUSH 09/10/16 16:00 (Trandate) 200 mg BID PO 09/10/16 21:00 09/13/16 09:05 Assessment/Plan Problem List: (1) Chronic hypertension affecting Plan: continue labetalol (2) delivery delivered Plan: routine (3) Anemia Plan: will check cbc out patient, take daily oral iron Assessment and Plan POD #3 pt doing well labile bp, will continue labetalol only taking motrin for pain discussed percocet as an option will give rx denies sob or dizziness with ambulation, will monitor cbc as outpatient and begin pt on daily iron infant doing well in nursery Discharge Planning dc home today Lisa Lawrence Sep 13, 2016 10:39
== END 2016-09-13 10:27 | disposition home or self-care (01) | DRG 765 ==
LOC: HOBED 10:11 → H2EB 10:30 → H1EA 17:34
PROVIDERS: ADMIT Obstetrics & Gynecology; ATTEND Obstetrics & Gynecology
PROC: 10D00Z1 Extraction of Products of Conception, Low, Open Approach (ICD-10-PCS; principal; 2016-09-10)
PROC: 0UB70ZZ Excision of Bilateral Fallopian Tubes, Open Approach (ICD-10-PCS; 2016-09-10)
DX: O41.03X0 Oligohydramnios, third trimester, not applicable or unspecified (principal); O10.92 Unspecified pre-existing hypertension complicating childbirth; O36.5930 Maternal care for other known or suspected poor fetal growth, third trimester, not applicable or unspecified; O34.13 Maternal care for benign tumor of corpus uteri, third trimester; D25.9 Leiomyoma of uterus, unspecified; Z3A.36 36 weeks gestation of pregnancy; O99.02 Anemia complicating childbirth; Z30.2 Encounter for sterilization; O09.513 Supervision of elderly primigravida, third trimester; O76 Abnormality in fetal heart rate and rhythm complicating labor and delivery; O99.89 Other specified diseases and conditions complicating pregnancy, childbirth and the puerperium; O35.1XX0 Maternal care for (suspected) chromosomal abnormality in fetus, not applicable or unspecified; D57.3 Sickle-cell trait; Z37.0 Single live birth
CPT/HCPCS: 76818; 76820; 76821; 80048; 80053; 81001; 84450; 84550; 85025; 85027; 86900; 86901; 87081; 87086; 87880; 88302; 88307; 99284; 99285; G0378; J0131; J0690; J0702; J2274; J2590; J3010; J7120

== ENCOUNTER 2017-09-02 01:49 | Emergency (ER) | payer MEDICAID, OTHER ==
[~2017-09-02] VITALS: Ht 162.6 cm; Wt 72.0 kg
[~2017-09-02 01:49] MED LIST changes: +IBUP-232 PO; +OXYC1TAB63 PO
[2017-09-02 01:52] VITALS: BP 139/83; PULSE 135; RESP 14; TEMP 102.1; O2SAT 95
[2017-09-02] MEDS ORDERED: IBUPROFEN 600 MG TAB PO ONE (02:00)
[2017-09-02] MEDS ORDERED: ACETAMINOPHEN 500 MG CPLT PO ONE (02:00)
[2017-09-02] MEDS ORDERED: OSEL75 PO (02:02)
--- NOTE | 2017-09-02 02:06 | PD ---
HPI Chief Complaint: Cold / Flu Symptoms Time Seen by Provider: 01:56 Travel History International Travel<30 days: No Contact w/Intl Traveler<30days: No Traveled to known affect area: No History of Present Illness HPI 42-year-old black female presents from her department with a 2 day history of fever and chills, headache, cough, nasal congestion, sore throat, and general malaise. She states that her daughter was just diagnosed yesterday with influenza. She denies any nausea vomiting. No bowel pain or diarrhea. No dysuria or frequency. Symptoms are moderate. No alleviating factors. Worse with sneezing and coughing. PFSH Past Medical History Narrative Medical Hypertension. Denies asthma and diabetes Diminished Hearing: No Hypertension: Yes Immunizations Current: Yes Tetanus Vaccination: < 5 Years Influenza Vaccination: No ?: Unknown : 0 Past Surgical History Surgical History: No Previous Surgery Social History Alcohol Use: No Tobacco Use: No Substance Use: No Allergies-Medications (Allergen,Severity, Reaction): Coded Allergies: No Known Allergies (Verified Adverse Reaction, Unknown, 09/02/17) Reported Meds & Prescriptions Reported Meds & Active Scripts Active Tamiflu (Oseltamivir Phosphate) 75 Mg Cap 75 Mg PO BID 5 Days Oxycodone-Acetaminophen 5-325 mg Tab 1 Tab PO Q4H PRN Ibuprofen 600 Mg Tab 600 Mg PO Q6H PRN Reported Labetalol (Labetalol HCl) 200 Mg Tab 200 Mg PO BID Review of Systems Except as stated in HPI: all other systems reviewed are Neg Physical Exam Narrative GENERAL: Well-developed, well-nourished in no apparent distress. Nontoxic appearing. HEAD: Normocephalic, atraumatic. EYES: Pupils equal round and reactive. Extraocular motions intact. No scleral icterus. No injection or drainage. ENT: Nose clear rhinorrhea. Throat without erythema, tonsillar hypertrophy or exudate. Uvula midline. Airway patent. NECK: Trachea midline. Supple, nontender, moves head freely. No central bony tenderness or spasm. CARDIOVASCULAR: Regular rate and rhythm without murmurs, gallops, or rubs. RESPIRATORY: Clear to auscultation. Breath sounds equal bilaterally. No wheezes , rales, or rhonchi. GASTROINTESTINAL: Abdomen soft, non-tender, nondistended. No hepato-splenomegaly , or palpable masses. No guarding. EXTREMITIES: No clubbing, cyanosis, or edema. No joint tenderness. BACK: Nontender without deformity. No flank tenderness. NEUROLOGICAL: Awake, alert and oriented x 3 .Cranial nerves grossly intact. Motor and sensory grossly within normal limits. Normal speech. Data Data Last Documented VS Vital Signs Date Time Temp Pulse Resp B/P (MAP) Pulse Ox O2 Delivery O2 Flow Rate FiO2 09/02/17 01:52 102.1 135 14 139/83 (101) 95 Room Air Orders Orders Ibuprofen (Motrin) (09/02/17 02:00) Acetaminophen (Tylenol) (09/02/17 02:00) Oral Rehydration (09/02/17 01:57) Oseltamivir (Tamiflu) (09/02/17 02:15) Ed Discharge Order (09/02/17 02:03) MDM Medical Decision Making Medical Screen Exam Complete: Yes Emergency Medical Condition: Yes Medical Record Reviewed: Yes Differential Diagnosis MDM: High Differential diagnoses: Pneumonia, bronchitis, URI, asthma, RAD, legionnaire's disease, SARS, ARDS, influenza, bronchiolitis, RSV,PE,CHF Narrative Course This is a 42-year-old black female who presents with influenza-like symptoms. Her daughter was just diagnosed yesterday with influenza. I see no reason to perform influenza testing. The patient will be empirically treated. She is given Tamiflu 75 g by mouth and a prescription. This is influenza Diagnosis Primary Impression: Influenza Patient Instructions: General Instructions Departure Forms: Tests/Procedures, Work Release Special Instructions: No work 5 days. Additional Instructions: Rest. Increase fluids. Tylenol and Advil. Robitussin-DM. Tamiflu.. Followup with your DrLeslye in one week. Return to the ER for any problems. Scripts Oseltamivir (Tamiflu) 75 Mg Cap 75 MG PO BID for Mgmt Viral Infection for 5 Days, #10 CAP 0 Refills Prov: Campos Noriega MD 09/02/17 Disposition: 01 DISCHARGE HOME Condition: Stable Jonathan Duran Sep 02, 2017 02:06
[2017-09-02] MEDS ORDERED: OSELTAMIVIR PHOSPHATE 75 MG CAP PO ONE (02:15)
== END 2017-09-02 02:20 | disposition home or self-care (01) ==
LOC: NEPD 01:49
DX: J11.1 Influenza due to unidentified influenza virus with other respiratory manifestations (principal); I10 Essential (primary) hypertension
CPT/HCPCS: 99283